=== PATIENT | male | born 1990 | race African-American/Black ===

== ENCOUNTER 2020-10-30 17:13 | Emergency (ER) | payer OTHER ==
[2020-10-30] MEDS ORDERED: Amoxicillin/Potassium Clav 875 MG TAB ONE (18:25)
[2020-10-30] MEDS ORDERED: Boostrix 0.5 ML (Tdap) VIAL ONE (18:25)
== END 2020-10-30 18:35 ==
LOC: MADERS 17:13
DX: S01.511A Laceration without foreign body of lip, initial encounter (principal); H02.846 Edema of left eye, unspecified eyelid; F17.210 Nicotine dependence, cigarettes, uncomplicated; Y04.0XXA Assault by unarmed brawl or fight, initial encounter
CPT/HCPCS: 90471; 90715; 99283